=== PATIENT | male | born 1940 | race Caucasian/White ===

== ENCOUNTER 2017-03-08 08:53 | Emergency (ER) | payer MEDICARE, OTHER ==
[~2017-03-08] VITALS: Ht 180.3 cm; Wt 83.6 kg
[~2017-03-08 08:53] MED LIST: ALBU1.25 NEB; ASPI81 PO; ATOR20TA42 PO; HYDR25R PR; LEVA500T33 PO; LORA-392 PO; NEBUMIS6; STOO100C PO
[2017-03-08 08:55] VITALS: BP 125/87; PULSE 78; RESP 14; TEMP 98; O2SAT 96
[2017-03-08] MEDS ORDERED: SODIUM CHLORIDE 0.9% FLUSH 10 ML FLUSH IV FLUSH PRN (09:15)
[2017-03-08 09:21] VITALS: RESP 16; O2SAT 96
[2017-03-08] MEDS ORDERED: LISI-515 PO (09:26)
[2017-03-08] MEDS ORDERED: LIPI20TA PO (09:26)
[2017-03-08] MEDS ORDERED: OMEP20TA PO (09:26)
[2017-03-08] MEDS ORDERED: ASPI81TA11 PO (09:26)
[2017-03-08] MEDS ORDERED: AMLO5TAB2 PO (09:26)
[2017-03-08] MEDS ORDERED: DIATRIZOATE MEGLUM/DIATRIZOATE SOD 9 ML CUP ONE (09:30)
[2017-03-08 09:39] LABS: AUTOMATED NEUTROPHIL # 5.2 TH/MM3 (1.8-7.7); BASOPHIL # 0.3 TH/MM3 (0-0.2); BASOPHIL % 3.8 % (0.0-2.0); EOSINOPHIL # 0.1 TH/MM3 (0-0.4); EOSINOPHIL % 1.4 % (0.0-4.0); HEMATOCRIT 41.9 % (39.0-51.0); HEMO FLAGS DIFF FINAL; LYMPH % 21.3 % (9.0-44.0); LYMPHOCYTE # 1.6 TH/MM3 (1.0-4.8); MEAN CELL VOLUME 92.7 FL (80.0-100.0); MEAN CORPUSCULAR HEMOGLOBIN 32.3 PG (27.0-34.0); MEAN CORPUSCULAR HGB CONC 34.9 % (32.0-36.0); MONO % 7.1 % (0.0-8.0); NEUT % 66.4 % (16.0-70.0); PLATELET COUNT 173 TH/MM3 (150-450); RED BLOOD COUNT 4.52 MIL/MM3 (4.50-5.90); RED CELL DISTRIBUTION WIDTH 11.8 % (11.6-17.2); WHITE BLOOD COUNT 7.7 TH/MM3 (4.0-11.0)
--- NOTE | 2017-03-08 09:40 | PD ---
HPI Chief Complaint: GI Complaint Time Seen by Provider: 09:00 Travel History International Travel<30 days: No Contact w/Intl Traveler<30days: No Traveled to known affect area: No History of Present Illness HPI Patient is a 77-year-old male presents emergency Department with complaint of abdominal discomfort and diarrhea. Dating back to September 2016 patient states that he has had some cramping after oral intake followed by a quick urge to have a bowel movement. States that his bowel movements are loose, though not large volume. He has not had any hematochezia. Patient has last approximately 7 pounds unintentionally in the last 6 months. He notes frequent belching. He does not really have any pain in the abdomen but rather Notes discomfort. This is diffuse throughout the abdomen, and worse after food intake though present throughout the day. Patient has tried Pepto-Bismol and Maalox without improvement of his symptoms. His last colonoscopy was approximately 3 years ago and reportedly normal. This was performed by Dr. Camargo. Patient has been followed by his [employer] PCP, but has not been seen for GI for these symptoms. He presents the ER today because they are increasing in frequency and severity, to the point where he is now having a proximally 7-8 small volume loose stools daily. 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,FIXED MITRAL VALVE") Tonsillectomy: Yes Other Surgery: Yes (hemorrhoids removed) Social History Alcohol Use: Yes (OCCAS WINE) Tobacco Use: No (hx of quit at age 45 smoked 1 pack in a week) Substance Use: No Allergies-Medications (Allergen,Severity, Reaction): Coded Allergies: Contrast Media (Verified Allergy, Mild, HIVES, 03/08/17) Penicillin (Verified Allergy, Mild, HIVES, 03/08/17) Reported Meds & Prescriptions Reported Meds & Active Scripts Active Reported Lisinopril 20 Mg Tab 20 Mg PO DAILY Amlodipine (Amlodipine Besylate) 5 Mg Tab 5 Mg PO DAILY Omeprazole 20 Mg Tab 20 Mg PO DAILY Lipitor (Atorvastatin Calcium) 20 Mg Tab 20 Mg PO DAILY Aspirin EC (Aspirin) 81 Mg Tabdr 81 Mg PO DAILY Review of Systems Except as stated in HPI: all other systems reviewed are Neg Physical Exam Narrative GENERAL: Well Appearing male in no acute distress SKIN: Focused skin assessment warm/dry. HEAD: Normocephalic. EYES: No scleral icterus. No injection or drainage. ENT: Mucous membranes pink and moist. NECK: Supple CARDIOVASCULAR: Regular rate and rhythm. RESPIRATORY: No accessory muscle use. GASTROINTESTINAL: Abdomen soft, non-tender, nondistended. Hepatic and splenic margins not palpable. MUSCULOSKELETAL: No obvious deformities. No edema. NEUROLOGICAL: Awake and alert. Normal speech. PSYCHIATRIC: Appropriate mood and affect; insight and judgment normal. Data Data Last Documented VS Vital Signs Date Time Temp Pulse Resp B/P Pulse Ox O2 Delivery O2 Flow Rate FiO2 03/08/17 09:21 16 96 Room Air 03/08/17 08:55 98.0 78 125/87 Orders Complete Blood Count With Diff (03/08/17 09:09) Comprehensive Metabolic Panel (03/08/17 09:09) Lipase (03/08/17 09:09) Iv Access Insert/Monitor (03/08/17 09:09) Oximetry (03/08/17 09:09) Sodium Chloride 0.9% Flush (Ns Flush) (03/08/17 09:15) Ct Abd/Pel W/O Iv Contrast (03/08/17 09:09) Oral Contrast - Adult (03/08/17 09:19) Diatrizoate Liq ( Gastroyomaira Liq) (03/08/17 09:30) Labs Laboratory Tests Test 03/08/17 03/08/17 09:25 10:00 White Blood Count 7.7 TH/MM3 Red Blood Count 4.52 MIL/MM3 Hemoglobin 14.6 GM/DL Hematocrit 41.9 % Mean Corpuscular Volume 92.7 FL Mean Corpuscular Hemoglobin 32.3 PG Mean Corpuscular Hemoglobin 34.9 % Concent Red Cell Distribution Width 11.8 % Platelet Count 173 TH/MM3 Mean Platelet Volume 8.9 FL Neutrophils (%) (Auto) 66.4 % Lymphocytes (%) (Auto) 21.3 % Monocytes (%) (Auto) 7.1 % Eosinophils (%) (Auto) 1.4 % Basophils (%) (Auto) 3.8 % Neutrophils # (Auto) 5.2 TH/MM3 Lymphocytes # (Auto) 1.6 TH/MM3 Monocytes # (Auto) 0.5 TH/MM3 Eosinophils # (Auto) 0.1 TH/MM3 Basophils # (Auto) 0.3 TH/MM3 CBC Comment DIFF FINAL Differential Comment Sodium Level 139 MEQ/L Potassium Level 4.7 MEQ/L Chloride Level 102 MEQ/L Carbon Dioxide Level 29.3 MEQ/L Anion Gap 8 MEQ/L Blood Urea Nitrogen 17 MG/DL Creatinine 0.95 MG/DL Estimat Glomerular Filtration 77 ML/MIN Rate Random Glucose 96 MG/DL Calcium Level 9.0 MG/DL Total Bilirubin 0.8 MG/DL Aspartate Amino Transf 26 U/L (AST/SGOT) Alanine Aminotransferase 44 U/L (ALT/SGPT) Alkaline Phosphatase 85 U/L Total Protein 7.4 GM/DL Albumin 4.2 GM/DL Lipase 237 U/L [facility] Medical Decision Making Medical Screen Exam Complete: Yes Emergency Medical Condition: Yes Medical Record Reviewed: Yes Differential Diagnosis 77-year-old male with approximately 6 months of abdominal discomfort and diarrhea after oral intake, worsening in severity. 7 pound unintentional weight loss. Differential includes inflammatory bowel disease, malabsorption syndrome, cancer of the small bowel or colon. Given the duration of his symptoms less likely to be infectious. Narrative Course Patient put ice on monitor, IV established and blood obtained. CBC, CMP, lipase unremarkable. Patient has allergy to contrast dye when he had a cardiac catheter. A CT abdomen and pelvis was therefore performed without IV, but with oral contrast showing no acute abnormalities. Patient will be given trial of Imodium, probiotic and discharged home with outpatient GI referral for endoscopy and colonoscopy. Diagnosis Primary Impression: Chronic diarrhea Additional Impression: Abdominal discomfort Referrals: Richard Price MD call for appointment Ultrasound Specialist call for appointment Additional Instructions: Trial of Imodium and probiotic as prescribed. Follow-up with estate and trust tax principal as discussed. Med/Other Pt SpecificInfo: Prescription(s) given Scripts Lactobacillus Acidophilus (Probiotic)1 Cap Cap2 Cap PO TIDAC #180 CAP Ref 0 Prov:Karmen Osborn MD 03/08/17 Loperamide (Imodium A-D)2 Mg Capsule2 Mg PO Q6H PRN (DIARRHEA) #30 CAP Ref 0 Prov:Karmen Osborn MD 03/08/17 Disposition: 01 DISCHARGE HOME Condition: Stable Karmen Osborn MD Mar 08, 2017 09:40
[2017-03-08 10:16] LABS: CHLORIDE 102 MEQ/L (98-107); POTASSIUM 4.7 MEQ/L (3.5-5.1); SODIUM (NA) 139 MEQ/L (136-145)
[2017-03-08 10:23] LABS: ANION GAP 8 MEQ/L (5-15); BICARBONATE 29.3 MEQ/L (21.0-32.0); BLOOD UREA NITROGEN 17 MG/DL (7-18)
[2017-03-08 10:26] LABS: ALT (GPT) 44 U/L (12-78); AST (GOT) 26 U/L (15-37); GLOMERULAR FILTRATION RATE 77 ML/MIN (>89)
[2017-03-08 10:28] LABS: TOTAL BILIRUBIN ADULT 0.8 MG/DL (0.2-1.0)
[2017-03-08 10:29] LABS: ALKALINE PHOSPHATASE 85 U/L (45-117)
--- NOTE | 2017-03-08 10:55 | RADRPT ---
EXAM DATE/TIME: 03/08/2017 10:28 [facility] COMPARISON: No previous studies available for comparison. INDICATIONS : Abdominal cramping and bloating, with diarrhea for 3 months. ORAL CONTRAST: Prescribed oral contrast ingested. RADIATION DOSE: 17.89 CTDIvol (mGy) MEDICAL HISTORY : Cardiovascular disease. SURGICAL HISTORY : CABG ENCOUNTER: Initial ACUITY: 3 months PAIN SCALE: 6/10 LOCATION: Bilateral middle abdomen. TECHNIQUE: Volumetric scanning of the abdomen and pelvis was performed. Using automated exposure control and ad justment of the mA and/or kV according to patient size, radiation dose was kept as low as reasonably achievable to obtain optimal diagnostic quality images. DICOM format image data is available electro nically for review and comparison. The lack of IV contrast limits the diagnosis for certain organ pat hology. FINDINGS: LOWER LUNGS: The visualized lower lungs are clear. LIVER: Homogeneous density without lesion. There is no dilation of the biliary tree. No calcified gallston es. SPLEEN: Normal size without lesion. PANCREAS: Within normal limits. KIDNEYS: Normal in size and shape. There is no mass, stone, or hydronephrosis. There is a 4.4 cm benign appea ring cyst lower pole left kidney. ADRENAL GLANDS: Within normal limits. VASCULAR: There is no aortic aneurysm. BOWEL/MESENTERY: The stomach, small bowel, and colon demonstrate no acute abnormality. There is no free intraperitone al air or fluid. No inflammatory changes. Scattered diverticulosis of the sigmoid colon without infla mmatory changes. ABDOMINAL WALL: Within normal limits. RETROPERITONEUM: There is no lymphadenopathy. BLADDER: No wall thickening or mass. REPRODUCTIVE: Prostate gland measures 4.8 cm. INGUINAL: There is no lymphadenopathy or hernia. MUSCULOSKELETAL: Within normal limits for patient age. Bony degenerative changes. CONCLUSION: 1. No acute intra-abdominal or pelvic pathology. 2. Simple appearing left renal cyst measuring 4.4 cm. 3. Scattered diverticulosis of the sigmoid colon without inflammatory changes. 4. Mild enlargement of prostate gland 4.8 cm. Armani Pepper MD on March 08, 2017 at 10:49 Board Certified Radiologist. This report was verified electronically.
[2017-03-08] MEDS ORDERED: LACTCAP8 PO (11:05)
[2017-03-08] MEDS ORDERED: LOPE-1 PO (11:05)
[2017-03-08 11:32] VITALS: BP 146/72
== END 2017-03-08 11:41 | disposition home or self-care (01) ==
LOC: PHED 08:53
DX: R19.7 Diarrhea, unspecified (principal); R10.9 Unspecified abdominal pain; F41.8 Other specified anxiety disorders; E78.00 Pure hypercholesterolemia, unspecified; I10 Essential (primary) hypertension; Z87.891 Personal history of nicotine dependence
CPT/HCPCS: 74176; 80053; 83690; 85025; 99285; Q9963